=== PATIENT | male | born 1980 | race Caucasian/White ===

== ENCOUNTER 2019-08-26 14:00 | Emergency (ER) | payer MEDICAID, SELFPAY ==
[2019-08-26 14:09] VITALS: BP 135/79; PULSE 93; RESP 20; TEMP 36.7; O2SAT 98
--- NOTE | 2019-08-26 14:48 | ED.WOUNDLAC ---
HPI - Wound/Laceration General Chief Complaint: Wound/Laceration Stated Complaint: cut right arm Source: patient Mode of arrival: ambulatory Limitations: no limitations History of Present Illness HPI narrative: While removing broken glass from a window a piece came loose and hit the patients right arm. Onset about 13:15. Bleeding was controlled. Pt has depression but no suicidal ideation. Onset (ago): hour(s) (one) Extremity Location: Right: arm Body four view annotation: 1. [address]: other (girlfriend's mother's house. ) Patient tetanus UTD: Yes Context: accidental Associated symptoms: none, loss of feeling/numbness, suspect foreign body present, unable to move injured part, nausea/vomiting and other (no numbness or weakness of right arm or hand. ) Treatments prior to arrival: bandage Related Data Home Medications Medication Instructions Recorded Confirmed No Home Medications 08/26/19 08/26/19 Allergies Allergy/AdvReac Type Severity Reaction Status Date / Time No Known Allergies Allergy Verified 08/26/19 14:04 Review of Systems Musculoskeletal: Comments: denies pain with movement of right arm. Neurologic: Comments: Denies numbness/weakness of right forearm/hand/fingers. [facility] Past Medical History Medical History Anxiety Depression Post traumatic stress disorder (PTSD) Social History Social History Smoking status: Current every day smoker Substance use type: former substance user Exam Const: General: no acute distress Orientation/consciousness: patient oriented x3 Skin: General skin exam: normal color Neuro: Other: Light touch sensation right forearm and hand intact. 5 + finger abduction, thumb-pincer strength, wrist flexion and extension. Extrem: Other: See procedure note for details. C/o pain in elbow region with resisted pronation and supination with full strength. Course Course Emergency Course: Reevaluation(s) Reevaluation #1: After wound closure I again tested pronation and supination along with elbow flexion and extension. There was full strength with no pain. Date: 08/26/19 Time: 14:33 Vital Signs Vital signs: Vital Signs Temperature 36.7 C 08/26/19 14:09 Pulse Rate 93 08/26/19 14:09 Respiratory Rate 20 08/26/19 14:09 Blood Pressure 135/79 08/26/19 14:09 Pulse Oximetry 98 08/26/19 14:09 Temperature 36.7 C 08/26/19 14:09 Pulse Rate 93 08/26/19 14:09 Respiratory Rate 08/26/19 14:09 Blood Pressure 135/79 08/26/19 14:09 Pulse Oximetry 98 08/26/19 14:09 Procedures Laceration Laceration 1: Date: 08/26/19 Time: 14:49 Site: upper extremity (3 cm proximal to medial mallious, 3 cm medial to midline of arm. ) Side (If applicable): left and right Size (cm): 3 Description: linear Depth: simple, single layer Local Anesthetic: lidocaine 1% Amount of anesthesia used (mL): 4 Pre-repair: wound explored ====== Skin Level ====== Skin layer closed with: nylon Size (cm): 4-0 Number of sutures: 10 Technique: running ====== Subcutaneous Layer ====== ====== Muscle Layer ====== ====== Tendon Layer ====== Dressing: Adaptic Discharge Plan Discharge Clinical Impression: Laceration Patient Disposition: Home, Self-Care Condition: Stable Instructions: Care For Your Stitches (ED) Additional Instructions: suture removal in 8 days. Prescriptions: No Action No Home Medications RF: 0 Follow-up/Referrals: Lesly Lawrence [employer] [Primary Care Provider] - Time of Disposition: 14:52 Discharge Date/Time: 08/26/19 14:58
== END 2019-08-26 14:58 | disposition home or self-care (01) ==
PROVIDERS: Emergency Provider Family Medicine; PCP Nurse Practitioner Family
DX: S41.112A Laceration without foreign body of left upper arm, initial encounter (principal); W25.XXXA Contact with sharp glass, initial encounter
CPT/HCPCS: 12002; 99282

== ENCOUNTER 2021-03-12 14:50 | Observation (INO) | payer BC, SELFPAY ==
[2021-03-12] VITALS (7 sets, daily range): BP systolic 113–140; BP diastolic 74–95; PULSE 70–97; RESP 12–20; TEMP 36.2–36.9; O2SAT 95–99; BMI 31.8
--- NOTE | 2021-03-12 15:04 | ECG_ITS ---
Measurements Intervals [place] Rate: 85 P: -9 MN: 149 QRS: -7 QRSD: 100 T: 4 QT: 398 QTc: 475 Interpretive Statements SINUS RHYTHM VOLTAGE CRITERIA FOR LVH BORDERLINE ST-T WAVE ABNORMALITY- ANT/INF LEADS BORDERLINE ECG Electronically Signed On 03-12-2021 15:53:30 UPWARD BOUND DIRECTOR by Escobar Lopez D.O.
[2021-03-12] MEDS: SODIUM CHLORIDE 0.9% IV 1,000 ML 999 ML IV CONT (15:15)
[2021-03-12 15:24] LABS: Base Excess ABG -1.5 mmol/L (0-2); HCO3 ABG 24.8 mmol/L (23-29); Oxygen Content ABG 19.7 %vol (16.0-22.0); Oxygen Saturation ABG 91.4 % (95-97); Oxyhemoglobin 90.3 % (94-100); PCO2 ABG 47.5 mmHg (35-45); PO2 ABG 65.2 mmHg (80-90); Total Hemoglobin 15.5 g/dL (12.0-18.0); pH ABG 7.34 (7.35-7.45)
[2021-03-12 15:26] LABS: Device ROOM AIR; Modified Allen's Test Pass; Site Drawn LEFT RADIAL
[2021-03-12 15:27] LABS: Basophils Absolute Auto 0.03 K/mm3 (0.00-0.10); Basophils Percent Auto 0.4 % (0.0-1.0); Eosinophils Absolute Auto 0.06 K/mm3 (0.02-0.50); Eosinophils Percent Auto 0.8 % (1.0-6.0); Hematocrit 45.2 % (40.0-54.0); Hemoglobin 15.6 g/dL (14.0-18.0); Immature Granulocyte Absolute 0.02 K/mm3 (0.00-0.00); Immature Granulocyte Percent A 0.3 % (0.0-0.0); Lymphocytes Absolute Auto 1.81 K/mm3 (1.10-4.50); Mean Corpuscular HGB Conc 34.5 g/dL (32.0-36.0); Mean Corpuscular Hemoglobin 31.2 pg (27.0-31.0); Mean Corpuscular Volume 90.4 fL (78.0-102.0); Mean Platelet Volume 10.4 fl (8.7-11.0); Monocytes Absolute Auto 0.39 K/mm3 (0.10-0.90); Monocytes Percent Auto 5.2 % (2.0-11.0); Neutrophils Absolute Auto 5.2 K/mm3 (1.7-7.2); Neutrophils Percent Auto 69.3 % (50.0-70.0); Platelet Count Result 204 K/mm3 (150-420); Red Cell Distribution Width 12.5 % (11.6-14.4); White Blood Count 7.6 K/mm3 (4.8-10.8)
[2021-03-12 15:37] LABS: Partial Thromboplastin Time 24.5 SEC (23.90-30.70); Prothrombin Time 10.9 Seconds (9.50-12.10)
[2021-03-12] MEDS: NALOXONE HCL 0.4 MG/ML VIAL IV PUSH ×2 (15:53→16:43)
[2021-03-12 16:00] LABS: Acetaminophen 0 ug/mL (10-30); Alanine Aminotransferase 88 U/L (16-63); Albumin Level 3.7 g/dL (3.4-5.0); Alkaline Phosphatase 89 U/L (46-116); Anion Gap 12 mmol/L (8-16); Aspartate Amino Transferase 38 U/L (15-37); Bilirubin,Total 1.2 mg/dL (0.00-1.00); Blood Urea Nitrogen 16 mg/dL (7-18); Calcium 8.3 mg/dL (8.5-10.1); Carbon Dioxide 24 mmol/L (21-32); Chloride 105 mmol/L (98-108); Estimated CRCL calculation 115 ml/min; Estimated Glomerular Filt Rate > 60; Glucose 188 mg/dL (70-99); Osmolality Calculated 298 mOsm/kg (285-295); Potassium 3.4 mmol/L (3.5-5.1); Salicylate 0.5 mg/dL (2.8-20.0); Sodium 141 mmol/L (136-145); Total Protein 7.7 g/dL (6.4-8.2)
[2021-03-12 16:01] LABS: SARS-CoV-2 RNA PCR Negative (Negative)
[2021-03-12 16:05] LABS: Lactic Acid Reflex 1.1 mmol/L (0.4-2.0)
[2021-03-12] MEDS: SODIUM CHLORIDE 0.9% IV 1,000 ML 999 ML (16:06)
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
[2021-03-12 17:04] LABS: Add Urine Microscopic? YES; Appearance Urine Clear (Clear); Bilirubin Urine Negative (Negative); Blood Urine Negative (Negative); Color Urine Yellow (Yellow); Glucose Urine UA Negative (Negative); Ketones Urine Negative (Negative); Leukocyte Esterase Ur Negative (Negative); Nitrate Urine Negative (Negative); Protein Urine 1+ (Negative); Specific Grav Ur >= 1.030 (1.010-1.020)
[2021-03-12 17:11] LABS: Amphetamine Screen Urine Positive (Negative); Barbiturate Screen Urine Negative (Negative); Benzodiazepines Screen Urine Negative (Negative); Cannabinoid Screen Urine Positive (Negative); Cocaine Screen Urine Negative (Negative); Methadone Screen Urine Negative (Negative); Opiate Screen Urine Negative (Negative); Phencyclidine Screen Urine Negative (Negative)
[2021-03-12 17:12] LABS: Bacteria Urine Trace /hpf; Squamous Epithelial Cell Urine Rare /hpf (Few); WBC Urine 0-3 /hpf (0-3)
[2021-03-12] MEDS: SODIUM CHLORIDE 0.9% IV 1,000 ML 100 ML IV CONT (17:40)
--- NOTE | 2021-03-12 19:35 | PC.NURSE ---
Patient's daughter called to speak with patient. Able to converse for few minutes before falling asleep.
--- NOTE | 2021-03-12 20:10 | PC.NURSE ---
Patient's daughter called with her phone number. Patient still sleeping. Woke up while having VS taken and asked for a drink. Educated on need for NPO diet at this time
[2021-03-12] MEDS: ENOXAPARIN 30 MG/0.3 ML SYRINGE SUB-Q (20:50)
[2021-03-13] VITALS: BP 123/69; PULSE 67; RESP 16; TEMP 36.4; O2SAT 98
--- NOTE | 2021-03-13 00:19 | PC.NURSE ---
Patient still drowsy. Alert to place and person. Able to state why he is in the hospital. Wakes to name.
[2021-03-13 04:00] VITALS: BP 113/68; PULSE 63; RESP 16; TEMP 36.4; O2SAT 96
[2021-03-13] MEDS: SODIUM CHLORIDE 0.9% IV 1,000 ML 100 ML IV CONT (04:00)
--- NOTE | 2021-03-13 04:04 | PC.NURSE ---
Patient appears to be less drowsy. Able to carry on conversation without falling asleep. SPO2 96% on room air.
--- NOTE | 2021-03-13 06:08 | PC.NURSE ---
Patient awake and alert. Doctor notified. New order received to advance diet as tolerated. Able to drink water without difficulty.
[2021-03-13 07:50] VITALS: BP 134/88; PULSE 67; RESP 20; TEMP 35.8; O2SAT 95
[2021-03-13 07:58] LABS: Basophils Absolute Auto 0.04 K/mm3 (0.00-0.10); Basophils Percent Auto 0.6 % (0.0-1.0); Eosinophils Absolute Auto 0.07 K/mm3 (0.02-0.50); Eosinophils Percent Auto 1.1 % (1.0-6.0); Hematocrit 41.6 % (40.0-54.0); Hemoglobin 13.8 g/dL (14.0-18.0); Immature Granulocyte Absolute 0.02 K/mm3 (0.00-0.00); Immature Granulocyte Percent A 0.3 % (0.0-0.0); Lymphocytes Absolute Auto 1.71 K/mm3 (1.10-4.50); Lymphocytes Percent Auto 27.8 % (18.0-42.0); Mean Corpuscular HGB Conc 33.2 g/dL (32.0-36.0); Mean Corpuscular Hemoglobin 31.2 pg (27.0-31.0); Mean Corpuscular Volume 93.9 fL (78.0-102.0); Monocytes Absolute Auto 0.41 K/mm3 (0.10-0.90); Monocytes Percent Auto 6.7 % (2.0-11.0); Neutrophils Absolute Auto 3.9 K/mm3 (1.7-7.2); Neutrophils Percent Auto 63.5 % (50.0-70.0); Platelet Count Result 162 K/mm3 (150-420); Red Blood Count 4.43 M/mm3 (4.70-6.10); Red Cell Distribution Width 12.8 % (11.6-14.4); White Blood Count 6.2 K/mm3 (4.8-10.8)
[2021-03-13 08:06] LABS: Base Excess ABG -0.2 mmol/L (0-2); HCO3 ABG 24.3 mmol/L (23-29); Oxygen Content ABG 19.7 %vol (16.0-22.0); Oxygen Saturation ABG 97.9 % (95-97); Oxyhemoglobin 96.3 % (94-100); PCO2 ABG 39.3 mmHg (35-45); PO2 ABG 105.6 mmHg (80-90); Total Hemoglobin 14.5 g/dL (12.0-18.0); pH ABG 7.41 (7.35-7.45)
[2021-03-13 08:08] LABS: Device ROOM AIR; Modified Allen's Test Pass; Site Drawn LEFT RADIAL
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
[2021-03-13 08:30] LABS: Alanine Aminotransferase 87 U/L (16-63); Albumin Level 3.1 g/dL (3.4-5.0); Alkaline Phosphatase 73 U/L (46-116); Anion Gap 10 mmol/L (8-16); Aspartate Amino Transferase 38 U/L (15-37); Bilirubin,Total 1.6 mg/dL (0.00-1.00); Blood Urea Nitrogen 11 mg/dL (7-18); Calcium 8.1 mg/dL (8.5-10.1); Carbon Dioxide 24 mmol/L (21-32); Chloride 106 mmol/L (98-108); Estimated CRCL calculation 145 ml/min; Estimated Glomerular Filt Rate > 60; Glucose 97 mg/dL (70-99); Osmolality Calculated 289 mOsm/kg (285-295); Potassium 3.8 mmol/L (3.5-5.1); Sodium 140 mmol/L (136-145); Total Protein 6.3 g/dL (6.4-8.2)
--- NOTE | 2021-03-13 08:55 | PC.NURSE ---
Patient discharged home with all personal items taken with patient. Discharge instructions given and patient acknowledged understanding of instructions given. IV site discontinued and removed prior to discharge. Staff escorted patient to main entrance on own power and walked off to a family members residence.
--- NOTE | 2021-03-17 14:10 | PC.NURSE ---
Unable to contact for discharge call back.
== END 2021-03-13 08:55 | disposition home or self-care (01) ==
LOC: CHSED 16:44 → CHS2ND 17:01
PROVIDERS: Admitting Provider Emergency Medicine; Emergency Provider Emergency Medicine; PCP Nurse Practitioner Family; Visit Provider Emergency Medicine
DX: T50.901A Poisoning by unspecified drugs, medicaments and biological substances, accidental (unintentional), initial encounter (principal); I10 Essential (primary) hypertension; F41.9 Anxiety disorder, unspecified; F32.A Depression, unspecified; F43.10 Post-traumatic stress disorder, unspecified; F17.200 Nicotine dependence, unspecified, uncomplicated; Z20.822 Contact with and (suspected) exposure to COVID-19
CPT/HCPCS: 36415; 36600; 80053; 80307; 81001; 82805; 83605; 83735; 85025; 85610; 85730; 93005; 96360; 96361; 96372; 96374; 96376; 99285; C9803; G0378; G0379; J1650; J2310; J7030; U0003; U0005

== ENCOUNTER 2022-06-03 14:00 | Emergency (ER) | payer BC, SELFPAY ==
[2022-06-03 14:16] VITALS: BP 116/92; PULSE 83; RESP 16; TEMP 36.4; O2SAT 97
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
[2022-06-03 14:41] VITALS: BP 116/92; PULSE 83; RESP 16; TEMP 36.4; O2SAT 97
== END 2022-06-03 14:44 | disposition home or self-care (01) ==
PROVIDERS: Emergency Provider Emergency Medicine
DX: F41.9 Anxiety disorder, unspecified (principal); F11.90 Opioid use, unspecified, uncomplicated; I10 Essential (primary) hypertension; F17.210 Nicotine dependence, cigarettes, uncomplicated
CPT/HCPCS: 99283